=== PATIENT | female | born 1975 ===

== ENCOUNTER 2022-11-04 06:34 | Day surgery (SDC) | payer OTHER, BC ==
[~2022-11-04 06:34] MED LIST: Dextrose 5%-0.45% NaCl 1,000 ML IV SCH; Sodium Chloride 0.9% 10 ML Syringe FLUSH PRN; Sodium Chloride 0.9% 10 ML Syringe FLUSH SCH
[2022-11-04] MEDS ORDERED: Midazolam 1 MG/ML 2 ML SDV ONE (07:29)
[2022-11-04] MEDS ORDERED: fentaNYL 100 MCG/2 ML SDV ONE (07:29)
[2022-11-04] MEDS ORDERED: fentaNYL 100 MCG/2 ML SDV IV ONE ×2 (07:44→07:45)
[2022-11-04] MEDS ORDERED: Midazolam 1 MG/ML 2 ML SDV IV ONE ×2 (07:45→07:46)
== END 2022-11-04 09:20 | disposition home or self-care (01) ==
LOC: DL.ENDO 06:34
PROVIDERS: ATTEND Internal Medicine Gastroenterology
DX: K44.9 Diaphragmatic hernia without obstruction or gangrene (principal); E66.09 Other obesity due to excess calories; G47.00 Insomnia, unspecified; Z98.890 Other specified postprocedural states; Z68.36 Body mass index [BMI] 36.0-36.9, adult
CPT/HCPCS: 87077; J2250; J3010; J7042

== ENCOUNTER 2022-11-18 05:53 | Day surgery (SDC) | payer OTHER, BC ==
[2022-11-18] MEDS ORDERED: Midazolam 1 MG/ML 2 ML SDV IV ONE ×7 (05:54→07:13)
[2022-11-18] MEDS ORDERED: fentaNYL 100 MCG/2 ML SDV IV ONE ×6 (05:54→07:21)
[2022-11-18] MEDS ORDERED: Dextrose 5%-0.45% NaCl 1,000 ML IV SCH (06:00)
[2022-11-18] MEDS ORDERED: fentaNYL 100 MCG/2 ML SDV ONE (06:09)
[2022-11-18] MEDS ORDERED: Midazolam 1 MG/ML 2 ML SDV ONE (06:09)
== END 2022-11-18 08:50 | disposition home or self-care (01) ==
LOC: DL.ENDO 05:53
PROVIDERS: ATTEND Internal Medicine Gastroenterology
DX: Z12.11 Encounter for screening for malignant neoplasm of colon (principal); K21.9 Gastro-esophageal reflux disease without esophagitis; R12 Heartburn; E66.09 Other obesity due to excess calories; F12.90 Cannabis use, unspecified, uncomplicated; G47.00 Insomnia, unspecified; F10.20 Alcohol dependence, uncomplicated; Y90.9 Presence of alcohol in blood, level not specified; Z98.890 Other specified postprocedural states; Z68.36 Body mass index [BMI] 36.0-36.9, adult
CPT/HCPCS: 45378; J2250; J3010; J7042